=== PATIENT | male | born 1965 | race Caucasian/White ===

== ENCOUNTER 2020-09-24 08:28 | Day surgery (SDC) | payer OTHER, SELFPAY ==
[2020-09-24 08:59] VITALS: BP 147/92; PULSE 83; RESP 18; TEMP 36.4; O2SAT 96
[2020-09-24] MEDS: Tropicam./Phenyleph. (1/2.5%) 5 ML BTL OD ×3 (09:11→09:23)
[2020-09-24] MEDS: Trypan Blue 0.06% 0.5 ML SYR (10:30)
[2020-09-24] MEDS: Tetracaine 0.5% 4 ML BTL OD (10:30)
[2020-09-24] MEDS: Balanced Salt Soln.-PLUS 500 ML BAG (10:31)
[2020-09-24] MEDS: Lidocaine 1% Pres-Free 5 ML VIAL (10:32)
[2020-09-24] MEDS: Duovisc Viscoelastic System EACH 1 EACH (10:32)
[2020-09-24] MEDS: Lidocaine 2% Jelly 6 ML SYR (10:33)
[2020-09-24] MEDS: Povidone-Iodine Ophth 30 ML BTL (10:34)
--- NOTE | 2020-09-24 10:59 | PDOC.DSDIS_ITS ---
Discharge Plan Disposition Patient Disposition: HOME Condition: Good Discharge Details Attending Provider: Kong Soni Primary Care Provider: Rosendo Morton Home Meds and New Rx's Prescriptions: No Action lisinopril 20 mg tablet 10 mg PO DAILY RF: 0 ibuprofen 200 mg Tablet 800 mg PO Q8H RF: 0 multivitamin Tablet 1 tab PO DAILY RF: 0 aspirin 81 mg Capsule,Delayed Release(Dr/Ec) 81 mg PO DAILY RF: 0 epinephrine [EpiPen] 0.3 mg/0.3 mL Auto-Injector 0.3 ml IM PRN PRNRF: 0 fluticasone propionate 50 mcg/actuation [place],Suspension 1 spray INTRANASAL BID RF: 0 omega 8-xbx-gax-fish oil [Fish Oil] 1,200 (144-216) mg Capsule 2 cap PO DAILY RF: 0 Discharge Instructions Stand Alone Forms: Post-op Topical Cataract, Ricardo Caruso (DSU) Discharge Orders Discharge Orders: Discharge Order (Routine); Ordered 09/24/20 Ordered By: Kong Soni DS: Diagnosis Discharge Diagnosis (1) Nuclear sclerotic cataract of right eye: Status: Resolved
--- NOTE | 2020-09-24 10:59 | W.PM.OP ---
Date of service: 09/24/20 Time of Service: 11:00 Operative Note Operative Note DATE OF PROCEDURE: 09/24/20 PRE-OP DIAGNOSIS: Dense nuclear cataract, right eye POST-OP DIAGNOSIS: same PROCEDURE: Cataract extraction using phacoemulsification with intraocular lens implantation, right eye, using capsular staining with Vision Blue SURGEON: Kong Soni Refer to Anesthesia Record PATHOLOGY: none sent COMPLICATIONS: None Patient was transported to: same day Patient's condition: stable Implants: [employer] / [employer] Tecnis [id number] Indications: Progressive visual loss due to cataract, right eye Procedure Description: CATARACT SURGERY OPERATIVE REPORT PREOPERATIVE DIAGNOSIS: 1. Dense nuclear cataract, right eye 2. Poor red reflex secondary to #1 POSTOPERATIVE DIAGNOSIS: Same OPERATION: 1. Cataract extraction using phacoemulsification with posterior chamber intraocular lens implant, right eye. 2. Capsular staining with Vision Blue IOL: IOL Consulting Engineer/Model: [employer] / [employer] [id number] IOL Power: + 21.0 diopters IOL Serial Number: [id number] Optic Diameter: 6.0mm Haptic/Overall Diameter: 13.0mm PHACO INFO: [employer] Vision System with OZil and Active Fluidics Cumulative Dispersed Energy (CDE): 11.74 seconds SURGEON: Kong Soni MD, ERIKA ANESTHESIA: Monitored Anesthesia Care (MAC), with local sub-tenon's anesthetic infiltration COMPLICATIONS: None SPECIMENS: None INDICATIONS FOR PROCEDURE: Patient is a 55-year-old gentleman with history of diminished visual acuity in his right eye. He is noted to have a dense nuclear cataract in the right eye. The option of cataract surgery was offered to the patient and he wished to proceed. PROCEDURE: The correct surgical eye was identified and marked as the right eye and the pupil was dilated in the preoperative area using mydriatics and cycloplegics. The dilated pupil size was 6.0 mm. He elected to proceed without oral sedation. The patient was brought to the operating room where cardiopulmonary monitoring was instituted and surgical time-out was performed, confirming the correct operative eye and IOL power. Topical anesthesia was administered and ophthalmic povidone-iodine 5% was instilled into the conjunctival fornices. Lidocaine gel was applied to the cornea and the beti-ocular area was prepped with Betadine 10% solution and draped in the usual sterile fashion for intraocular surgery, including an aperture drape. A Tegaderm transparent film dressing was cut in half and used to cover the lashes and lid margins. Care was taken to sequester the lashes and lid margins under the Tegaderm dressing. A lid speculum was placed between the lids of the operative eye and the Mckenna-Tay operating microscope was maneuvered into position. Jennifer scissors were then used to make a conjunctival buttonhole approximately 6mm posterior to the limbus in the inferonasal quadrant. Blunt dissection was carried out to expose bare sclera, and a blunt-tipped sub-tenon?s anesthesia cannula was introduced and passed posteriorly along the globe where non-preserved plain lidocaine was injected into posterior sub-Tenon?s space. A sideport knife was used to make a paracentesis port inferotemporally. Intraocular phenylephrine/lidocaine was injected into the anterior chamber. Air was injected into the anterior chamber, followed by Vision Blue, which was painted over the anterior capsule and then irrigated out with BSS. The anterior chamber was filled with viscoelastic. A 2.4mm keratome knife was used to create a half-thickness groove at the limbus and then to construct a three-plane near-clear corneal tunnel extending 2.0mm into clear cornea superiortemporally. A flap was raised on the anterior capsule and capsulorhexis forceps were used to complete a continuous curvilinear capsulorhexis of 5.0 mm. Capsulorhexis was challenging due to constant patient movement and eye movement, despite fixating the side-port with forceps. Balanced salt solution was then used to perform cortical cleaving hydrodissection and nuclear hydrodelineation until the lens could be freely rotated within the capsular bag. The lens nucleus was then disassembled and removed within the capsular bag and iris plane using phacoemulsification. Residual cortical material was removed using the I/A handpiece. The posterior capsule was carefully polished to remove as much residual lens epithelial cells as safely possible. The capsular bag was then inflated and the anterior chamber deepened with viscoelastic. The lens implant described above was inserted into the capsular bag using the [employer] [place] Injector. A Kuglen hook was used to dial the IOL into position. Residual viscoelastic was then removed first from posterior to the IOL, then from the anterior chamber using the I/A handpiece. The lens implant was noted to center nicely within the capsular bag. The incisions were stromally hydrated, and the anterior chamber was reformed using BSS. Then 0.5cc of moxifloxacin 1.0mg/ml were injected into the capsular bag and anterior chamber. The incisions were checked with a Weck spear and found to be secure. Several drops of ophthalmic povidone-iodine 5% were then applied to the eye followed by two drops of Imprimis combination prednisolone/moxifloxacin/nepafenac solution. The drapes were removed and a clear plastic protective eye shield was placed over the eye. The patient was then returned to [facility] in stable condition.
== END 2020-09-24 11:18 | disposition home or self-care (01) ==
PROVIDERS: PCP Naturopath; Visit Provider Ophthalmology
PROC: (CPT 66982; principal; 2020-09-24 11:30)
DX: H25.11 Age-related nuclear cataract, right eye (principal); H35.89 Other specified retinal disorders
CPT/HCPCS: 66982; V2632

== ENCOUNTER → 2023-06-08 00:21 | Outpatient (CLI) | payer OTHER, SELFPAY ==
--- NOTE | 2023-06-08 | DI.DEXA_ITS ---
Exam(s) XR DEXA BONE DENSITY W/WO ISH EXAM: XR DEXA BONE DENSITY W/WO ISH CLINICAL HISTORY: OSTEOPOROSIS, M81.0, HYPOGONADISM TECHNIQUE: COMPARISON: No exams were available for comparison FINDINGS: Lateral Spine Image: Unremarkable. No compression deformities identified. Right hip: Total T-Score: 0.2 Total Z-Score: 0.6 T- and Z-scores: Within normal limits. Lumbar Spine: Total T-Score: 5.2 Total Z-Score: 5.8 T- and Z-scores: Within normal limits. IMPRESSION: No evidence of osteoporosis.
== END ==
PROVIDERS: PCP Naturopath; Visit Provider Internal Medicine
DX: Z13.820 Encounter for screening for osteoporosis (principal)
CPT/HCPCS: 77080